=== PATIENT | male | born 1980 | race Caucasian/White ===

== ENCOUNTER → 2016-06-03 | Outpatient (REF) | payer MEDICARE, MEDICAID ==
[~2016-06-03] MED LIST: /CELE20CA OR; /LAMO20TA OR; /ROPI25TA OR; ACET500C OR; EXCEDRINE MIGRAINE OR; FLECTOR1.3 TOP; IMIT100T OR; LEVO25TA2 OR; MELOPOW OR; NORT25CA2 OR; SOMA350T OR; TOPI100T OR; TOPI200T OR; VENL75TA2 OR; VITAMIN B COMPLE1 OR; VOLT1GEL EX
== END ==
LOC: M SMT 12:53
PROVIDERS: ATTEND Nurse Practitioner Family
DX: R35.0 Frequency of micturition (principal)
CPT/HCPCS: 81001; 87088; 87186; G0463

== ENCOUNTER → 2016-07-08 | Outpatient (REF) | payer MEDICARE, MEDICAID | LOC: M LABNEURO 12:57 | PROVIDERS: ATTEND Physician Assistant Medical | DX: R56.9 Unspecified convulsions (principal); Z51.81 Encounter for therapeutic drug level monitoring; Z79.899 Other long term (current) drug therapy ==

== ENCOUNTER → 2016-08-14 | Outpatient (REF) | payer MEDICARE, MEDICAID ==
[~2016-08-14] MED LIST changes: +CYMB60CA3 PO; +KEPP1000 PO; +LAMI200T3 PO; +LEVO25TA5 PO; +LYRI150C PO; +MIRT30TA3 PO; +PAME25CA PO; +nortriptyline PO
[2016-08-14 14:00] LABS: BASO % 0.6 % (0.0-1.0); EOS # 0.3 K/mm3 (0.0-0.50); EOS % 4.3 % (0.0-3.0); LARGE UNSTAINED CELL # 0.2 K/mm3 (0.0-0.4); LARGE UNSTAINED CELL % 2.5 % (0.0-4.0); LYMPH # 2.3 K/mm3 (1.5-4.5); LYMPH % 33.7 % (24.0-44.0); MEAN CORPUSCULAR HEMOGLOBIN 32.4 pg (27.0-33.0); MEAN CORPUSCULAR HGB CONC 35.3 g/dl (32.0-36.5); MEAN CORPUSCULAR VOLUME 91.9 fl (80.0-96.0); MONO # 0.4 K/mm3 (0.0-0.8); MONO % 5.5 % (0.0-5.0); NEUTROPHILS # 3.7 K/mm3 (1.8-7.7); NEUTROPHILS % 53.5 % (36.0-66.0); PLATELET COUNT, AUTOMATED 279 k/mm3 (150-450); RED CELL DISTRIBUTION WIDTH 12.6 % (11.5-14.5); WHITE BLOOD COUNT 6.9 K/mm3 (4.0-10.0)
[2016-08-14 14:06] LABS: INR 1.01
[2016-08-14 14:27] LABS: ALBUMIN 4.2 GM/DL (3.2-5.2); ALBUMIN/GLOBULIN RATIO 1.17 (1.00-1.93); ALKALINE PHOSPHATASE 95 U/L (45-117); ALT/SGPT 134 U/L (12-78); ANION GAP 9 MEQ/L (8-16); AST/SGOT 68 U/L (15-37); BILIRUBIN,TOTAL 0.6 MG/DL (0.2-1.0); BLOOD UREA NITROGEN 8 MG/DL (7-18); CARBON DIOXIDE LEVEL 28 MEQ/L (21-32); CHLORIDE LEVEL 101 MEQ/L (98-107); CHOLESTEROL LEVEL 156 MG/DL (<200); CREATININE FOR GFR 0.84 MG/DL (0.70-1.30); FREE T4 0.88 NG/DL (0.76-1.46); GLOMERULAR FILTRATION RATE > 60.0 (>60); GLUCOSE, FASTING 335 MG/DL (70-105); POTASSIUM SERUM 3.9 MEQ/L (3.5-5.1); SODIUM LEVEL 138 MEQ/L (136-145); TOTAL PROTEIN 7.8 GM/DL (6.4-8.2); TRIGLYCERIDES LEVEL 347 MG/DL (<150)
== END ==
LOC: M LAB REF 13:24
PROVIDERS: ATTEND Nurse Practitioner Family
DX: R63.1 Polydipsia (principal); R78.5 Finding of other psychotropic drug in blood; E55.9 Vitamin D deficiency, unspecified; E03.9 Hypothyroidism, unspecified; G43.909 Migraine, unspecified, not intractable, without status migrainosus; K62.5 Hemorrhage of anus and rectum

== ENCOUNTER → 2016-08-14 | Outpatient (CLI) | payer MEDICARE, MEDICAID ==
[~2016-08-14] MED LIST changes: +E-Z-PAQUE 96% w/w SUSP 176GM BTL As Ordered ONE; +VARIBAR NECTAR 40% w/v 240ML SUSP BTL As Ordered ONE; +VARIBAR PUDDING 40% w/v 230ML TUBE As Ordered ONE
--- NOTE | 2016-08-14 16:34 | REP ---
CHEST, TWO VIEWS: REASON: Dysphagia. PRIORS: None. There is a partially imagined ventriculoperitoneal shunt on the right. There is a partially imaged curvilinear density along the right anterior chest of uncertain etiology. The lung zaidi are clear and the heart is not enlarged. The osseous structure are within normal limits. IMPRESSION: No acute cardiopulmonary disease. Other findings as described above. Correlate clinically. Signed by Rich Stahl DO 08/14/2016 04:55 P
--- NOTE | 2016-08-14 17:45 | REP ---
COOKIE SWALLOW: The procedure was performed under the direct supervision of Dr. Victoria. The procedure was performed with Sharonda Kapadia from speech pathology present. 5 mL aliquots of nectar pudding solid and thin consistency barium was administered. There is no evidence of penetration or aspiration. A detailed report of this examination will be provided by speech pathology. 22 seconds of fluoroscopy time was utilized for this procedure. Reviewed by RICHARD Vergara 08/15/2016 04:54 PEdited and Signed by Branden Victoria MD 08/15/2016 07:53 P
== END ==
LOC: M ST 09:46
PROVIDERS: ATTEND Nurse Practitioner Family
DX: R13.10 Dysphagia, unspecified (principal); R63.1 Polydipsia; R78.5 Finding of other psychotropic drug in blood; E55.9 Vitamin D deficiency, unspecified; E03.9 Hypothyroidism, unspecified; G43.909 Migraine, unspecified, not intractable, without status migrainosus; K62.5 Hemorrhage of anus and rectum
CPT/HCPCS: 71020; 74230; 80053; 80061; 82306; 83036; 84439; 84443; 85025; 85610; 92611; G8996; G8997; G8998

== ENCOUNTER → 2016-11-18 | Outpatient (REF) | payer MEDICARE, MEDICAID ==
[~2016-11-18] MED LIST changes: +BACL10TA2 PO; +DOXE10CA PO; -E-Z-PAQUE 96% w/w SUSP 176GM BTL As Ordered ONE; +GLUC1000 PO; +JANU100T PO; -KEPP1000 PO; +KEPP10002 PO; +LAMI1TAB9 PO; -LAMI200T3 PO; +MIRT45TA PO; +REQU1TAB14 PO; +REQU1TAB16 PO; -VARIBAR NECTAR 40% w/v 240ML SUSP BTL As Ordered ONE; -VARIBAR PUDDING 40% w/v 230ML TUBE As Ordered ONE; +VITA1CAP40 PO
[2016-11-18 15:42] LABS: ANION GAP 12 MEQ/L (8-16); BLOOD UREA NITROGEN 10 MG/DL (7-18); CALCIUM LEVEL 8.7 MG/DL (8.5-10.1); CARBON DIOXIDE LEVEL 22 MEQ/L (21-32); CHLORIDE LEVEL 110 MEQ/L (98-107); CREATININE FOR GFR 0.82 MG/DL (0.70-1.30); GLOMERULAR FILTRATION RATE > 60.0 (>60); GLUCOSE, FASTING 126 MG/DL (70-105); POTASSIUM SERUM 4.2 MEQ/L (3.5-5.1); SODIUM LEVEL 144 MEQ/L (136-145)
== END ==
LOC: M LAB REF 13:23
PROVIDERS: ATTEND Nurse Practitioner Family
DX: E11.9 Type 2 diabetes mellitus without complications (principal); E55.9 Vitamin D deficiency, unspecified; R56.9 Unspecified convulsions; Z51.81 Encounter for therapeutic drug level monitoring; Z79.899 Other long term (current) drug therapy

== ENCOUNTER → 2016-11-18 | Outpatient (REF) | payer MEDICARE, MEDICAID | LOC: M LAB REF 13:30 | PROVIDERS: ATTEND Physician Assistant Medical | DX: R56.9 Unspecified convulsions (principal); Z51.81 Encounter for therapeutic drug level monitoring; Z79.899 Other long term (current) drug therapy ==

== ENCOUNTER 2016-12-17 03:06 | Emergency (ER) | payer MEDICARE, MEDICAID ==
[~2016-12-17] VITALS: Ht 154.9 cm; Wt 104.1 kg
[~2016-12-17 03:06] MED LIST changes: -BACL10TA2 PO; -DOXE10CA PO; -GLUC1000 PO; -JANU100T PO; -MIRT45TA PO; -REQU1TAB14 PO; -REQU1TAB16 PO; -VITA1CAP40 PO
[2016-12-17] MEDS ORDERED: BACL10TA2 PO (03:26)
[2016-12-17] MEDS ORDERED: VITA1CAP40 PO (03:26)
[2016-12-17] MEDS ORDERED: REQU1TAB16 PO (03:26)
[2016-12-17] MEDS ORDERED: MIRT45TA PO (03:26)
[2016-12-17] MEDS ORDERED: REQU1TAB14 PO (03:26)
[2016-12-17] MEDS ORDERED: GLUC1000 PO (03:26)
[2016-12-17] MEDS ORDERED: DOXE10CA PO (03:26)
[2016-12-17 04:26] LABS: BASO % 0.1 % (0.0-1.0); EOS % 0.1 % (0.0-3.0); LARGE UNSTAINED CELL # 0.2 K/mm3 (0.0-0.4); LARGE UNSTAINED CELL % 1.6 % (0.0-4.0); LYMPH # 1.2 K/mm3 (1.5-4.5); LYMPH % 11.1 % (24.0-44.0); MEAN CORPUSCULAR HEMOGLOBIN 32.2 pg (27.0-33.0); MEAN CORPUSCULAR HGB CONC 36.5 g/dl (32.0-36.5); MEAN CORPUSCULAR VOLUME 88.2 fl (80.0-96.0); MONO # 0.5 K/mm3 (0.0-0.8); NEUTROPHILS # 9.3 K/mm3 (1.8-7.7); NEUTROPHILS % 83.2 % (36.0-66.0); PLATELET COUNT, AUTOMATED 320 k/mm3 (150-450); RED CELL DISTRIBUTION WIDTH 12.1 % (11.5-14.5); WHITE BLOOD COUNT 11.2 K/mm3 (4.0-10.0)
--- NOTE | 2016-12-17 04:42 | REPUSA ---
CLINICAL HISTORY: Headaches. TECHNIQUE: Multiple axial brain CT scan sections were obtained from base to vertex without contrast a dministration. COMMENTS: Right parietal ventriculoperitoneal shunt with its tip at the level of the frontal horn of the left l ateral ventricle. Slitlike left lateral ventricle. 3.2 mm midline shift to the right side. The study shows normal configuration of sella turcica. There are no intra or extra-axial collections. There is no mass effect or midline shift. There is no evidence of hematoma formation. No hydrocephal us is present. No abnormal calcifications are noted. No significant abnormalities are seen either in the posterior fossa or supratentorial compartment. The sinuses and mastoid air cells are patent. IMPRESSION: Right parietal ventriculoperitoneal shunt with its tip at the level of the frontal horn of the left l ateral ventricle. Slitlike left lateral ventricle. No evidence of acute intracranial pathology. 3.2 mm midline shift to the right side. Thank you for your kind referral of this patient.
[2016-12-17 04:43] LABS: ANION GAP 11 MEQ/L (8-16); BLOOD UREA NITROGEN 16 MG/DL (7-18); CALCIUM LEVEL 9.2 MG/DL (8.5-10.1); CARBON DIOXIDE LEVEL 26 MEQ/L (21-32); CHLORIDE LEVEL 101 MEQ/L (98-107); CREATININE FOR GFR 0.89 MG/DL (0.70-1.30); GLOMERULAR FILTRATION RATE > 60.0 (>60); GLUCOSE, FASTING 150 MG/DL (70-105); POTASSIUM SERUM 3.5 MEQ/L (3.5-5.1); SODIUM LEVEL 138 MEQ/L (136-145)
[2016-12-17] MEDS ORDERED: NS 1,000 ML IV ONE (04:45)
[2016-12-17] MEDS ORDERED: METOCLOPRAMIDE INJ 10MG/2ML VIAL (J2765) IV ONE (04:45)
--- NOTE | 2016-12-17 05:51 | REPUSA ---
CLINICAL HISTORY: Ventricular peritoneal shunt. COMMENTS: Normal bilateral frontozygomatic and zygomatic-temporal arches. Normal bilateral medial and inferior orbital rivera. Normal bilateral orbits. Normal visualized nasal bones. Normal anterior nasal spine. The remaining visualized osseous structures are normal. Normal visualized paranasal sinuses.The lungs are expanded. There is no demonstrated parenchymal abno rmality. There is no demonstrated pleural abnormality. Normal heart and pericardium. Normal mediastinum and ravindra. Normal visualized pulmonary arteries. Normal visualized aortic arch and descending thoracic aorta. Normal visualized thoracic spine. Normal visualized ribs, clavicles, and shoulders. There is no demonstrated abnormality of the visualized soft tissue structures of the upper abdomen.No rmal visualized lung bases. There is an unremarkable bowel gas pattern. There is no demonstrated free abdominal air. Normal visualized liver. Normal visualized spleen. Normal visualized kidneys. The soft tissue structures of the pelvis are unremarkable. Normal visualized osseous structures. Uninterrupted right ventricular peritoneal shunt is noted. IMPRESSION: Uninterrupted right ventricular peritoneal shunt is noted. Thank you for your kind referral of this patient.
[2016-12-17 06:42] VITALS: BP 135/79
[2016-12-18] MEDS ORDERED: JANU100T PO (13:52)
== END 2016-12-17 06:45 | disposition home or self-care (01) ==
LOC: M ED 03:06
DX: R51 Headache (principal); R11.2 Nausea with vomiting, unspecified; G91.9 Hydrocephalus, unspecified; Z98.2 Presence of cerebrospinal fluid drainage device; E11.9 Type 2 diabetes mellitus without complications; G40.909 Epilepsy, unspecified, not intractable, without status epilepticus; Z79.899 Other long term (current) drug therapy; Z79.84 Long term (current) use of oral hypoglycemic drugs
CPT/HCPCS: 70450; 75809; 80048; 85025; 93041; 94760; 96361; 96374; 99284; J2765

== ENCOUNTER 2016-12-18 13:39 | Emergency (ER) | payer MEDICARE, MEDICAID ==
[~2016-12-18] VITALS: Ht 154.9 cm; Wt 229.0 kg
[~2016-12-18 13:39] MED LIST changes: +BACL10TA2 PO; +DOXE10CA PO; +GLUC1000 PO; +MIRT45TA PO; +REQU1TAB14 PO; +REQU1TAB16 PO; +VITA1CAP40 PO
[2016-12-18] MEDS ORDERED: JANU100T PO (13:52)
--- NOTE | 2016-12-18 14:59 | REP ---
Clinical: Headache and vomiting . Comparison: 12/17/2016, 09/11/2015 . Findings: There is a ventriculoperitoneal shunt via right parietal approach extending into the left lateral ventricle. The ventricles are stable, normal, and without evidence for hydrocephalus or ventriculomegaly. The sulci and basilar cisterns are normal. Victoria-white differentiation is maintained. No acute intracranial hemorrhage or mass/mass effect. No extra-axial fluid collection. The calvarium is relatively intact. Partial opacification of the ethmoid sinuses may reflect mild sinus disease. Impression: 1. Stable noncontrast head CT when compared with prior examinations dating through 09/11/2015. 2. No evidence for acute intracranial pathology or trauma/injury. 3. Stable appearance and positioning to the ventriculoperitoneal shunt and stable appearance to the ventricles without hydrocephalus or ventriculomegaly. Signed by Tutu Leon MD 12/18/2016 02:50 P
[2016-12-18] MEDS ORDERED: LIDOCAINE 2% MDV 20 ML VIAL As Ordered ONE (15:08)
[2016-12-18] MEDS ORDERED: ACETAMINOPHEN 325 MG TAB PO ONE (15:15)
[2016-12-18] MEDS ORDERED: LIDOCAINE 2% MDV 20 ML VIAL SC ONE (15:15)
[2016-12-18 16:37] VITALS: BP 114/61
== END 2016-12-18 16:38 | disposition home or self-care (01) ==
LOC: M ED 13:39
DX: S01.81XA Laceration without foreign body of other part of head, initial encounter (principal); W01.0XXA Fall on same level from slipping, tripping and stumbling without subsequent striking against object, initial encounter; Y92.481 Parking lot as the place of occurrence of the external cause; Y93.9 Activity, unspecified; Y99.9 Unspecified external cause status; Z79.899 Other long term (current) drug therapy

== ENCOUNTER → 2017-02-18 | Outpatient (REF) | payer MEDICARE, MEDICAID ==
[~2017-02-18] MED LIST changes: +JANU100T PO
[2017-02-18 14:12] LABS: ANION GAP 8 MEQ/L (8-16); BLOOD UREA NITROGEN 12 MG/DL (7-18); CALCIUM LEVEL 9.1 MG/DL (8.5-10.1); CARBON DIOXIDE LEVEL 26 MEQ/L (21-32); CHLORIDE LEVEL 104 MEQ/L (98-107); CHOLESTEROL LEVEL 134 MG/DL (<200); CREATININE FOR GFR 0.86 MG/DL (0.70-1.30); GLOMERULAR FILTRATION RATE > 60.0 (>60); GLUCOSE, FASTING 199 MG/DL (70-105); SODIUM LEVEL 138 MEQ/L (136-145); TRIGLYCERIDES LEVEL 267 MG/DL (<150)
== END ==
LOC: M LAB REF 12:42
PROVIDERS: ATTEND Nurse Practitioner Family
DX: E55.9 Vitamin D deficiency, unspecified (principal); E78.5 Hyperlipidemia, unspecified; E11.9 Type 2 diabetes mellitus without complications

== ENCOUNTER → 2017-03-11 | Outpatient (REF) | payer MEDICARE, MEDICAID ==
[2017-03-11 19:00] LABS: THYROXINE (T4) 12.4 UG/DL (4.5-12.0)
== END ==
LOC: M LAB REF 17:26
PROVIDERS: ATTEND Nurse Practitioner Adult Health
DX: E03.9 Hypothyroidism, unspecified (principal)

== ENCOUNTER → 2017-04-29 | Outpatient (REF) | payer MEDICARE, MEDICAID ==
[2017-04-29 14:39] LABS: TOTAL 25(OH) VITAMIN D 16.5 NG/ML (30.0-100.0)
[2017-04-29 15:10] LABS: ESTIMATED AVERAGE GLUCOSE 217 MG/DL (60-110); HEMOGLOBIN A1c 9.2 %
== END ==
LOC: M LAB REF 13:58
DX: E11.9 Type 2 diabetes mellitus without complications (principal); E55.9 Vitamin D deficiency, unspecified
CPT/HCPCS: 84443

== ENCOUNTER → 2017-08-17 | Outpatient (REF) | payer MEDICARE, MEDICAID | LOC: M LABNEURO 14:08 | DX: G40.909 Epilepsy, unspecified, not intractable, without status epilepticus (principal) | CPT/HCPCS: 36415 ==

== ENCOUNTER → 2017-10-21 | Outpatient (REF) | payer MEDICARE, MEDICAID ==
[2017-10-21 14:59] LABS: ESTIMATED AVERAGE GLUCOSE 143 MG/DL (60-110); HEMOGLOBIN A1c 6.6 %
== END ==
LOC: M LAB REF 13:43
DX: E11.9 Type 2 diabetes mellitus without complications (principal); E03.9 Hypothyroidism, unspecified
CPT/HCPCS: 84443

== ENCOUNTER → 2017-11-04 | Outpatient (REF) | payer MEDICARE, MEDICAID ==
[2017-11-06 14:15] LABS: H. PYLORI BREATH TEST Negative (Negative)
== END ==
LOC: M LAB REF 09:15
DX: R13.10 Dysphagia, unspecified (principal); E03.9 Hypothyroidism, unspecified
CPT/HCPCS: 84443

== ENCOUNTER → 2017-12-11 | Outpatient (CLI) | payer MEDICARE, MEDICAID ==
[~2017-12-11] MED LIST changes: -/CELE20CA OR; -/LAMO20TA OR; -/ROPI25TA OR; -ACET500C OR; -BACL10TA2 PO; -CYMB60CA3 PO; -DOXE10CA PO; +E-Z-GAS II EFFERVESCENT PACKET (SODIUM BICARB./CITRIC ACID/SIMETHICONE) As Ordered; +E-Z-HD 98% w/w 340GM SUSP BTL As Ordered; +E-Z-PAQUE 96% w/w SUSP 176GM BTL As Ordered; -EXCEDRINE MIGRAINE OR; -FLECTOR1.3 TOP; -GLUC1000 PO; -IMIT100T OR; -JANU100T PO; -KEPP10002 PO; -LAMI1TAB9 PO; -LEVO25TA2 OR; -LEVO25TA5 PO; -LYRI150C PO; -MELOPOW OR; -MIRT30TA3 PO; -MIRT45TA PO; -NORT25CA2 OR; -PAME25CA PO; -REQU1TAB14 PO; -REQU1TAB16 PO; -SOMA350T OR; -TOPI100T OR; -TOPI200T OR; -VENL75TA2 OR; -VITA1CAP40 PO; -VITAMIN B COMPLE1 OR; -VOLT1GEL EX; -nortriptyline PO
== END ==
LOC: M RAD 08:43
DX: R13.10 Dysphagia, unspecified (principal); K21.0 Gastro-esophageal reflux disease with esophagitis; R10.13 Epigastric pain
CPT/HCPCS: 74220

== ENCOUNTER → 2017-12-18 | Outpatient (CLI) | payer MEDICARE, MEDICAID | LOC: M RAD 08:46 | DX: K31.84 Gastroparesis (principal); R11.0 Nausea; R10.13 Epigastric pain | CPT/HCPCS: 78264 ==

== ENCOUNTER → 2017-12-21 | Outpatient (REF) | payer MEDICARE, MEDICAID ==
[2017-12-21 15:56] LABS: ESTIMATED AVERAGE GLUCOSE 140 MG/DL (60-110); HEMOGLOBIN A1c 6.5 %
[2017-12-21 20:46] LABS: TOTAL 25(OH) VITAMIN D 26.7 NG/ML (30.0-100.0)
== END ==
LOC: M LAB REF 13:22
DX: I10 Essential (primary) hypertension (principal); E11.9 Type 2 diabetes mellitus without complications
CPT/HCPCS: 84443

== ENCOUNTER 2018-01-19 13:47 | Outpatient (RCR) | payer MEDICARE, MEDICAID | END 2018-02-03 | LOC: M PT 13:47 | DX: H81.13 Benign paroxysmal vertigo, bilateral (principal); H81.93 Unspecified disorder of vestibular function, bilateral | CPT/HCPCS: 97112 ==

== ENCOUNTER 2018-02-08 11:14 | Outpatient (RCR) | payer MEDICARE, MEDICAID | END 2018-03-05 | LOC: M PT 11:14 | DX: H81.13 Benign paroxysmal vertigo, bilateral (principal); H81.93 Unspecified disorder of vestibular function, bilateral | CPT/HCPCS: 97110 ==

== ENCOUNTER 2018-02-15 14:34 | Emergency (ER) | payer MEDICARE, MEDICAID ==
[2018-02-15 15:36] LABS: BASO # 0.1 10^3/uL (0.0-0.2); BASO % 0.5 % (0.0-1.0); EOS # 0.4 10^3/uL (0.0-0.50); EOS % 3.7 % (0.0-3.0); HEMATOCRIT 37.8 % (42.0-52.0); HEMOGLOBIN 13.1 g/dl (13.5-17.5); IMMATURE GRANULOCYTE % 0.4 % (0-3.0); LYMPH # 3.8 10^3/uL (1.5-4.5); LYMPH % 35.9 % (24.0-44.0); MEAN CORPUSCULAR HEMOGLOBIN 30.6 pg (27.0-33.0); MEAN CORPUSCULAR HGB CONC 34.7 g/dl (32.0-36.5); MEAN CORPUSCULAR VOLUME 88.3 fl (80.0-96.0); MONO # 0.8 10^3/uL (0.0-0.8); MONO % 7.2 % (0.0-5.0); NEUTROPHILS # 5.5 10^3/uL (1.8-7.7); NEUTROPHILS % 52.3 % (36.0-66.0); PLATELET COUNT, AUTOMATED 287 10^3/uL (150-450); RED BLOOD COUNT 4.28 10^6/uL (4.30-6.10); RED CELL DISTRIBUTION WIDTH 12.4 % (11.5-14.5); WHITE BLOOD COUNT 10.5 10^3/uL (4.0-10.0)
[2018-02-15 15:55] LABS: ANION GAP 8 MEQ/L (8-16); BLOOD UREA NITROGEN 8 MG/DL (7-18); CALCIUM LEVEL 9.1 MG/DL (8.5-10.1); CARBON DIOXIDE LEVEL 27 MEQ/L (21-32); CHLORIDE LEVEL 104 MEQ/L (98-107); CPK CREATINE PHOSPHOKINASE 362 U/L (39-308); CREATININE FOR GFR 0.88 MG/DL (0.70-1.30); ETHYL ALCOHOL (ETHANOL) < 0.003 % (0.000-0.010); FREE T4 1.05 NG/DL (0.76-1.46); GLOMERULAR FILTRATION RATE > 60.0 (>60); GLUCOSE, FASTING 85 MG/DL (70-100); MAGNESIUM LEVEL 2.1 MG/DL (1.8-2.4); POTASSIUM SERUM 3.9 MEQ/L (3.5-5.1); SODIUM LEVEL 139 MEQ/L (136-145); TROPONIN I < 0.02 NG/ML (< 0.10)
[2018-02-15] MEDS: NS 500 ML IV (16:00)
[2018-02-15 18:09] LABS: AMPHETAMINES LEVEL URINE NEGATIVE (NEGATIVE); BARBITURATES URINE NEGATIVE (NEGATIVE); BENZODIAZEPINES URINE NEGATIVE (NEGATIVE); CANNABINOIDS URINE NEGATIVE (NEGATIVE); COCAINE METABOLITE URINE NEGATIVE (NEGATIVE); METHADONE URINE NEGATIVE (NEGATIVE); OPIATES URINE NEGATIVE (NEGATIVE); PHENCYCLIDINE URINE NEGATIVE (NEGATIVE)
[2018-02-15 18:19] LABS: KETONE, URINE AUTO RFX NEGATIVE (NEGATIVE); LEUKOCYTE ESTERASE UR AUTO RFX NEGATIVE (NEGATIVE); MUCUS, URINE RFX SMALL (NEGATIVE); NITRITE, URINE AUTO RFX NEGATIVE (NEGATIVE); RBC, URINE AUTO RFX 1 /HPF (0-3); SPECIFIC GRAVITY UR AUTO RFX 1.009 (1.002-1.035); SQUAM EPITHELIAL CELL UR AURFX 0 /HPF (0-6); WBC, URINE AUTO RFX 0 /HPF (0-3)
[2018-02-16 14:07] LABS: BEDSIDE GLUCOSE 82 MG/DL (70-105)
== END 2018-02-15 18:58 | disposition home or self-care (01) ==
LOC: M ED 14:34
DX: R55 Syncope and collapse (principal); R00.0 Tachycardia, unspecified; R94.31 Abnormal electrocardiogram [ECG] [EKG]; E11.9 Type 2 diabetes mellitus without complications; M79.7 Fibromyalgia; G40.409 Other generalized epilepsy and epileptic syndromes, not intractable, without status epilepticus; R42 Dizziness and giddiness; Z98.2 Presence of cerebrospinal fluid drainage device; Z79.899 Other long term (current) drug therapy
CPT/HCPCS: 71045

== ENCOUNTER 2018-03-17 14:41 | Outpatient (RCR) | payer MEDICARE, MEDICAID ==
[~2018-03-17 14:41] MED LIST changes: +/CELE20CA OR; +/LAMO20TA OR; +/ROPI25TA OR; +ACET500C OR; +BACL10TA2 PO; +CYMB60CA3 PO; +DOXE10CA PO; -E-Z-GAS II EFFERVESCENT PACKET (SODIUM BICARB./CITRIC ACID/SIMETHICONE) As Ordered; -E-Z-HD 98% w/w 340GM SUSP BTL As Ordered; -E-Z-PAQUE 96% w/w SUSP 176GM BTL As Ordered; +EXCEDRINE MIGRAINE OR; +FLECTOR1.3 TOP; +GLIP5TAB20 PO; +GLUC1000 PO; +IMIT100T OR; +JANU100T PO; +KEPP10002 PO; +LAMI1TAB9 PO; +LEVO25TA2 OR; +LEVO25TA5 PO; +LEVO75TA4 PO; +LYRI150C PO; +MELOPOW OR; +MIRT30TA3 PO; +MIRT45TA4 PO; +NORT25CA2 OR; +PAME25CA PO; +PROTPAK PO; +PROZ10CA7 PO; +PROZ20CA11 PO; +REQU1TAB14 PO; +REQU1TAB16 PO; +SOMA350T OR; +TOPI100T OR; +TOPI200T OR; +TRAZ-163 PO; +VENL75TA2 OR; +VITA50005 PO; +VITAMIN B COMPLE1 OR; +VOLT1GEL EX; +ZOLP5TAB PO; +nortriptyline PO
[2018-03-23] MEDS ORDERED: MECL1CHW2 PO (09:47)
[2018-03-23] MEDS ORDERED: PAME25CA PO ×2 (09:47)
== END 2018-04-05 ==
LOC: M PT 14:41
PROVIDERS: ATTEND Nurse Practitioner Adult Health
DX: H81.13 Benign paroxysmal vertigo, bilateral (principal)
CPT/HCPCS: 97110; 97112; 97530; G8979; G8980

== ENCOUNTER 2018-03-24 12:27 | Day surgery (SDC) | payer MEDICARE, MEDICAID ==
[2018-03-24] MEDS: LR 1,000 ML IV (12:48)
[2018-03-24 13:36] LABS: BEDSIDE GLUCOSE 94 MG/DL (70-105)
[2018-03-24] MEDS ORDERED: PROPOFOL 200 MG/20 ML VIAL As Ordered (14:14)
[2018-03-24] MEDS ORDERED: LIDOCAINE 2% INJ 100 MG/5 ML SDV (FOR ANES.) As Ordered (14:14)
[2018-03-24] MEDS ORDERED: MIDAZOLAM INJ 2 MG/2 ML VIAL (J2250) As Ordered (14:14)
[2018-03-24] MEDS ORDERED: fentaNYL 100 MCG/2 ML INJECTION (J3010) As Ordered (14:15)
[2018-03-24] MEDS: LIDOCAINE 1% MDV 20ML VIAL As Ordered (14:58)
[2018-03-24] MEDS ORDERED: PERCOCET 5MG/325MG TAB PO (15:45)
[2018-03-24] MEDS ORDERED: LR 1,000 ML IV (15:45)
[2018-03-24] MEDS ORDERED: ONDANSETRON 4MG/2ML VIAL (J2405) IV (15:45)
[2018-03-24] MEDS ORDERED: ACETAMINOPHEN TAB 650MG DOSE (2X325MG) PO (15:45)
== END 2018-03-24 16:00 | disposition home or self-care (01) ==
LOC: M SDC 16:00
DX: R55 Syncope and collapse (principal); I10 Essential (primary) hypertension; E11.9 Type 2 diabetes mellitus without complications; G40.909 Epilepsy, unspecified, not intractable, without status epilepticus; R00.0 Tachycardia, unspecified; E03.9 Hypothyroidism, unspecified; M79.7 Fibromyalgia; F41.9 Anxiety disorder, unspecified; F32.9 Major depressive disorder, single episode, unspecified; K21.9 Gastro-esophageal reflux disease without esophagitis; G43.909 Migraine, unspecified, not intractable, without status migrainosus; R06.83 Snoring; G47.30 Sleep apnea, unspecified; E66.01 Morbid (severe) obesity due to excess calories; Z68.41 Body mass index [BMI] 40.0-44.9, adult; Z79.899 Other long term (current) drug therapy; Z98.2 Presence of cerebrospinal fluid drainage device
CPT/HCPCS: 33282

== ENCOUNTER → 2018-05-31 | Outpatient (REF) | payer MEDICARE, MEDICAID ==
[~2018-05-31] MED LIST changes: +MECL1CHW2 PO
[2018-05-31 19:59] LABS: BASO # 0.1 10^3/uL (0.0-0.2); BASO % 0.5 % (0.0-1.0); EOS # 0.2 10^3/uL (0.0-0.50); EOS % 1.7 % (0.0-3.0); HEMATOCRIT 40.4 % (42.0-52.0); HEMOGLOBIN 13.9 g/dl (13.5-17.5); LYMPH # 2.9 10^3/uL (1.5-4.5); MEAN CORPUSCULAR HEMOGLOBIN 30.2 pg (27.0-33.0); MEAN CORPUSCULAR HGB CONC 34.4 g/dl (32.0-36.5); MEAN CORPUSCULAR VOLUME 87.8 fl (80.0-96.0); MONO # 0.6 10^3/uL (0.0-0.8); MONO % 5.8 % (0.0-5.0); NEUTROPHILS # 6.6 10^3/uL (1.8-7.7); NEUTROPHILS % 63.6 % (36.0-66.0); PLATELET COUNT, AUTOMATED 325 10^3/uL (150-450); WHITE BLOOD COUNT 10.4 10^3/uL (4.0-10.0)
[2018-05-31 20:05] LABS: ALBUMIN 4.4 GM/DL (3.2-5.2); ALT/SGPT 84 U/L (12-78); BILIRUBIN,TOTAL 0.4 MG/DL (0.2-1.0); BLOOD UREA NITROGEN 8 MG/DL (7-18); CALCIUM LEVEL 9.1 MG/DL (8.5-10.1); CARBON DIOXIDE LEVEL 27 MEQ/L (21-32); CHLORIDE LEVEL 101 MEQ/L (98-107); CHOLESTEROL LEVEL 166 MG/DL (<200); CHOLESTEROL RISK RATIO 6.148 (<5); CREATININE FOR GFR 1.07 MG/DL (0.70-1.30); FREE T4 1.03 NG/DL (0.76-1.46); GLOMERULAR FILTRATION RATE > 60.0 (>60); GLUCOSE, FASTING 118 MG/DL (70-100); HDL CHOLESTEROL 27 MG/DL (>40); LDL CHOLESTEROL 94 MG/DL (<100); NON-HDL-C 139 MG/DL; POTASSIUM SERUM 3.9 MEQ/L (3.5-5.1); SODIUM LEVEL 137 MEQ/L (136-145); TOTAL 25(OH) VITAMIN D 11.8 NG/ML (30.0-100.0); TOTAL PROTEIN 8.6 GM/DL (6.4-8.2); TRIGLYCERIDES LEVEL 225 MG/DL (<150)
[2018-05-31 20:22] LABS: HEMOGLOBIN A1c 7.1 %
[2018-05-31 20:33] LABS: CREATININE, URINE 92.9 MG/DL; MALB URINE SIEMENS 16.6 MG/L; MAU/CREAT RATIO 17.8 MCG/MG (0.0-30.0)
[2018-06-03 00:08] LABS: Lyme Disease IgG/IgM Antibodie <0.91 ISR (0.00-0.90); Lyme Disease IgM Ab Quantitati <0.80 index (0.00-0.79)
== END ==
LOC: M LAB REF 18:54
PROVIDERS: ATTEND Family Medicine
DX: M25.50 Pain in unspecified joint (principal); E11.9 Type 2 diabetes mellitus without complications

== ENCOUNTER → 2018-06-05 | Outpatient (CLI) | payer MEDICARE, MEDICAID ==
--- NOTE | 2018-06-07 09:45 | REP ---
MRI lumbar spine without contrast: History: Acute low back pain. Comparison MRI study is from December 16, 2010. Technique: Sagittal and axial T1 and T2-weighted scans are acquired in the usual fashion with and without fat saturation. Sequences include spin echo, turbo spin-echo, and STIR imaging sequences. MRI findings: Cortical and medullary bone signal intensity are normal. Alignment is normal. The tip of the conus medullaris is normal in position and appearance at L1 unchanged. No extra vertebral abnormality is observed. There is no abnormal cyst seen in the thecal sac on today's images although T11 is beyond the field of view. At the L3-4, there is disc space narrowing and anterior spurring and disc bulging which is a new finding compared to prior study. Some diffuse posterior disc bulging is observed including the foraminal disc segments, left more so than right. No neural foraminal compression is seen however. No central canal stenosis is noted. At L4-5, there is mild disc space narrowing and minimal diffuse disc bulging. There is facet hypertrophy bilaterally. At L5-S1, there is a fairly large left posterior disc protrusion compressing and displacing the exiting S1 root on the left. There is facet hypertrophy moderate in degree bilaterally. The nerve roots exit the neural foramina surrounded by epidural fat however without compression. The disc protrusion at L5-S1 on the left appears more prominent today. The left S1 root sleeve is displaced more dorsally. Impression: Left L5-S1 disc protrusion with slightly increased and compression of the left S1 root. Degenerative spondylosis changes at L3-4 L4-5 somewhat more pronounced. Electronically Signed by Nura Mason MD 06/07/2018 12:44 P
== END ==
LOC: M RAD 12:25
PROVIDERS: ATTEND Internal Medicine
DX: M54.5 Low back pain (principal)

== ENCOUNTER → 2018-09-03 | Outpatient (REF) | payer MEDICARE, MEDICAID ==
[~2018-09-03] MED LIST changes: -/CELE20CA OR; -/LAMO20TA OR; -/ROPI25TA OR; +CELE1CAP4 OR; +LAMI1TAB9 OR; +MECL1CHW PO; -MECL1CHW2 PO; +REQU1TAB14 OR
[2018-09-03 14:36] LABS: APPEARANCE, URINE HAZY (CLEAR); BACTERIA, URINE AUTO NEGATIVE (NEGATIVE); BILIRUBIN, URINE AUTO NEGATIVE (NEGATIVE); BLOOD, URINE BLOOD NEGATIVE (NEGATIVE); COLOR, URINE YELLOW (YELLOW); GLUCOSE, URINE (UA) AUTO NEGATIVE (NEGATIVE); KETONE, URINE AUTO NEGATIVE (NEGATIVE); LEUKOCYTE ESTERASE, URINE AUTO NEGATIVE (NEGATIVE); MUCUS, URINE SMALL (NEGATIVE); NITRITE, URINE AUTO NEGATIVE (NEGATIVE); PROTEIN, URINE AUTO NEGATIVE (NEGATIVE); RBC, URINE AUTO 4 /HPF (0-3); SPECIFIC GRAVITY URINE AUTO 1.029 (1.002-1.035); SQUAMOUS EPITHELIAL CELL UR AU 2 /HPF (0-6); WBC, URINE AUTO 3 /HPF (0-3)
[2018-09-03 15:06] LABS: MALB URINE SIEMENS 38.3 MG/L; MAU/CREAT RATIO 10.5 MCG/MG (0.0-30.0)
[2018-09-03 18:44] LABS: BASO % 0.5 % (0.0-1.0); EOS # 0.2 10^3/uL (0.0-0.50); EOS % 2.3 % (0.0-3.0); HEMOGLOBIN 14.5 g/dl (13.5-17.5); LYMPH # 2.2 10^3/uL (1.5-4.5); LYMPH % 25.6 % (24.0-44.0); MEAN CORPUSCULAR HEMOGLOBIN 30.9 pg (27.0-33.0); MEAN CORPUSCULAR HGB CONC 34.5 g/dl (32.0-36.5); MEAN CORPUSCULAR VOLUME 89.4 fl (80.0-96.0); MONO # 0.5 10^3/uL (0.0-0.8); MONO % 6.2 % (0.0-5.0); NEUTROPHILS # 5.7 10^3/uL (1.8-7.7); NEUTROPHILS % 65.1 % (36.0-66.0); PLATELET COUNT, AUTOMATED 341 10^3/uL (150-450); WHITE BLOOD COUNT 8.7 10^3/uL (4.0-10.0)
[2018-09-03 19:01] LABS: ALT/SGPT 60 U/L (12-78); BILIRUBIN,TOTAL 0.6 MG/DL (0.2-1.0); BLOOD UREA NITROGEN 15 MG/DL (7-18); CALCIUM LEVEL 8.6 MG/DL (8.5-10.1); CARBON DIOXIDE LEVEL 25 MEQ/L (21-32); CHLORIDE LEVEL 107 MEQ/L (98-107); CHOLESTEROL LEVEL 170 MG/DL (<200); CHOLESTEROL RISK RATIO 6.071 (<5); CREATININE FOR GFR 1.03 MG/DL (0.70-1.30); FREE T4 1.03 NG/DL (0.76-1.46); GLOMERULAR FILTRATION RATE > 60.0 (>60); GLUCOSE, FASTING 100 MG/DL (70-100); HDL CHOLESTEROL 28 MG/DL (>40); LDL CHOLESTEROL 116 MG/DL (<100); NON-HDL-C 142 MG/DL; POTASSIUM SERUM 4.1 MEQ/L (3.5-5.1); SODIUM LEVEL 140 MEQ/L (136-145); THYROID STIMULATING HORMONE 0.751 uIU/ML (0.358-3.740); TOTAL 25(OH) VITAMIN D 17.8 NG/ML (30.0-100.0); TOTAL PROTEIN 8.1 GM/DL (6.4-8.2); TRIGLYCERIDES LEVEL 132 MG/DL (<150)
[2018-09-07 00:07] LABS: Lyme Disease IgG/IgM Antibodie <0.91 ISR (0.00-0.90); Lyme Disease IgM Ab Quantitati <0.80 index (0.00-0.79)
== END ==
LOC: M LAB REF 12:32
PROVIDERS: ATTEND Family Medicine
DX: M25.50 Pain in unspecified joint (principal); E11.9 Type 2 diabetes mellitus without complications; Z79.899 Other long term (current) drug therapy

== ENCOUNTER → 2018-10-18 | Outpatient (CLI) | payer MEDICARE, MEDICAID ==
[~2018-10-18] MED LIST changes: -TRAZ-163 PO; +TRAZ-257 PO
--- NOTE | 2018-10-18 10:22 | REP ---
CT BRAIN WITHOUT CONTRAST: HISTORY: Hydrocephalus. COMPARISON: CT study February 15, 2018. FINDINGS: Digital commercial loan underwriter image demonstrates a ventriculostomy catheter. Bone window settings show that this catheter enters the brain from the right parietal bone. Catheter tip is seen in the frontal horn of the left lateral ventricle. No bony calvarial lesion is seen. Visualized paranasal sinuses are clear. On soft-tissue window settings, the catheter position is unchanged. The left lateral ventricle is quite small but unchanged. The right lateral ventricle is a little larger, also unchanged. Third and fourth ventricles are normal in size. Victoria-white differentiation pattern is normal. There is no evidence of intracranial hemorrhage. No infarct, mass, extra-axial fluid collection, or midline shift is seen. IMPRESSION: Right ventriculostomy catheter and ventricular size unchanged in position and appearance. No acute intracranial abnormality. Electronically Signed by Nura Mason MD 10/18/2018 11:11 A
== END ==
LOC: M RAD 09:37
PROVIDERS: ATTEND Neurological Surgery
DX: G91.9 Hydrocephalus, unspecified (principal)

== ENCOUNTER → 2018-11-30 | Outpatient (REF) | payer MEDICARE, MEDICAID ==
[2018-11-30 14:07] LABS: BASO # 0.1 10^3/uL (0.0-0.2); BASO % 0.6 % (0.0-1.0); EOS # 0.3 10^3/uL (0.0-0.50); EOS % 2.9 % (0.0-3.0); HEMATOCRIT 41.7 % (42.0-52.0); HEMOGLOBIN 13.9 g/dl (13.5-17.5); LYMPH # 2.9 10^3/uL (1.5-4.5); LYMPH % 29.6 % (24.0-44.0); MEAN CORPUSCULAR HEMOGLOBIN 30.1 pg (27.0-33.0); MEAN CORPUSCULAR HGB CONC 33.3 g/dl (32.0-36.5); MEAN CORPUSCULAR VOLUME 90.3 fl (80.0-96.0); MONO # 0.7 10^3/uL (0.0-0.8); NEUTROPHILS # 5.8 10^3/uL (1.8-7.7); NEUTROPHILS % 59.5 % (36.0-66.0); PLATELET COUNT, AUTOMATED 367 10^3/uL (150-450); RED BLOOD COUNT 4.62 10^6/uL (4.30-6.10); WHITE BLOOD COUNT 9.8 10^3/uL (4.0-10.0)
[2018-11-30 14:17] LABS: ALT/SGPT 41 U/L (12-78); BILIRUBIN,TOTAL 0.5 MG/DL (0.2-1.0); BLOOD UREA NITROGEN 12 MG/DL (7-18); CALCIUM LEVEL 9.1 MG/DL (8.5-10.1); CARBON DIOXIDE LEVEL 28 MEQ/L (21-32); CHLORIDE LEVEL 106 MEQ/L (98-107); CHOLESTEROL LEVEL 139 MG/DL (<200); CHOLESTEROL RISK RATIO 4.793 (<5); CREATININE FOR GFR 1.08 MG/DL (0.70-1.30); GLOMERULAR FILTRATION RATE > 60.0 (>60); GLUCOSE, FASTING 123 MG/DL (70-100); HDL CHOLESTEROL 29 MG/DL (>40); LDL CHOLESTEROL 71 MG/DL (<100); NON-HDL-C 110 MG/DL; POTASSIUM SERUM 3.8 MEQ/L (3.5-5.1); SODIUM LEVEL 138 MEQ/L (136-145); THYROID STIMULATING HORMONE 0.739 uIU/ML (0.358-3.740); TOTAL 25(OH) VITAMIN D 19.6 NG/ML (30.0-100.0); TRIGLYCERIDES LEVEL 194 MG/DL (<150)
[2018-11-30 14:48] LABS: MALB URINE SIEMENS 97.4 MG/L
[2018-11-30 16:16] LABS: HEMOGLOBIN A1c 6.2 %
== END ==
LOC: M LAB REF 12:24
PROVIDERS: ATTEND Family Medicine
DX: E11.9 Type 2 diabetes mellitus without complications (principal)

== ENCOUNTER → 2019-02-02 | Outpatient (REF) | payer MEDICARE, MEDICAID ==
[~2019-02-02] MED LIST changes: +TRAZ-163 PO; -TRAZ-257 PO
[2019-02-06 11:53] LABS: LAMOTRIGINE (LAMICTAL) 5.8 ug/mL (2.0-20.0); LEVETIRACETAM (KEPPRA) 16.2 ug/mL (10.0-40.0)
== END ==
LOC: M LABNEURO 13:08
PROVIDERS: ATTEND Physician Assistant Medical
DX: R56.9 Unspecified convulsions (principal)

== ENCOUNTER → 2019-07-29 | Outpatient (REF) | payer MEDICARE, MEDICAID ==
[~2019-07-29] MED LIST changes: -TRAZ-163 PO; +TRAZ-257 PO
[2019-07-29 19:05] LABS: H PYLORI QUALITATIVE IgG NEGATIVE (NEGATIVE)
== END ==
LOC: M LAB REF 16:11
PROVIDERS: ATTEND Family Medicine
DX: R19.7 Diarrhea, unspecified (principal)

== ENCOUNTER → 2019-08-18 | Outpatient (REF) | payer MEDICARE, MEDICAID ==
[2019-08-18 19:19] LABS: BASO # 0.1 10^3/uL (0.0-0.2); BASO % 0.7 % (0.0-1.0); EOS # 0.2 10^3/uL (0.0-0.5); EOS % 3.1 % (0.0-3.0); HEMATOCRIT 38.8 % (42.0-52.0); HEMOGLOBIN 13.2 g/dl (13.5-17.5); LYMPH # 2.3 10^3/uL (1.5-5.0); LYMPH % 30.4 % (24.0-44.0); MEAN CORPUSCULAR HEMOGLOBIN 30.6 pg (27.0-33.0); MONO # 0.4 10^3/uL (0.0-0.8); MONO % 5.3 % (0.0-5.0); NEUTROPHILS # 4.6 10^3/uL (1.5-8.5); NEUTROPHILS % 60.1 % (36.0-66.0); PLATELET COUNT, AUTOMATED 289 10^3/uL (150-450); RED BLOOD COUNT 4.31 10^6/uL (4.30-6.10); WHITE BLOOD COUNT 7.7 10^3/uL (4.0-10.0)
[2019-08-18 19:40] LABS: HEMOGLOBIN A1c 6.3 %
[2019-08-18 20:19] LABS: ALBUMIN 3.8 GM/DL (3.2-5.2); ALT/SGPT 59 U/L (12-78); BILIRUBIN,TOTAL 0.3 MG/DL (0.2-1.0); BLOOD UREA NITROGEN 10 MG/DL (7-18); CALCIUM LEVEL 8.7 MG/DL (8.5-10.1); CARBON DIOXIDE LEVEL 24 MEQ/L (21-32); CHLORIDE LEVEL 106 MEQ/L (98-107); GLOMERULAR FILTRATION RATE > 60.0 (>60); GLUCOSE, FASTING 273 MG/DL (70-100); POTASSIUM SERUM 3.9 MEQ/L (3.5-5.1); SODIUM LEVEL 139 MEQ/L (136-145); TOTAL PROTEIN 7.6 GM/DL (6.4-8.2)
[2019-08-18 20:20] LABS: TOTAL 25(OH) VITAMIN D 18.6 NG/ML (30.0-100.0)
== END ==
LOC: M LAB REF 16:25
PROVIDERS: ATTEND Family Medicine
DX: R14.0 Abdominal distension (gaseous) (principal); E11.9 Type 2 diabetes mellitus without complications

== ENCOUNTER → 2019-11-11 | Outpatient (REF) | payer MEDICARE, MEDICAID ==
[2019-12-10 04:26] LABS: BASO % 0.5 % (0.0-1.0); EOS # 0.3 10^3/uL (0.0-0.5); EOS % 3.5 % (0.0-3.0); HEMATOCRIT 39.9 % (42.0-52.0); HEMOGLOBIN 13.3 g/dl (13.5-17.5); LYMPH # 2.9 10^3/uL (1.5-5.0); LYMPH % 36.4 % (24.0-44.0); MEAN CORPUSCULAR HEMOGLOBIN 30.1 pg (27.0-33.0); MEAN CORPUSCULAR HGB CONC 33.3 g/dl (32.0-36.5); MEAN CORPUSCULAR VOLUME 90.3 fl (80.0-96.0); MONO # 0.6 10^3/uL (0.0-0.8); MONO % 7.7 % (0.0-5.0); NEUTROPHILS # 4.1 10^3/uL (1.5-8.5); NEUTROPHILS % 51.4 % (36.0-66.0); PLATELET COUNT, AUTOMATED 299 10^3/uL (150-450); RED BLOOD COUNT 4.42 10^6/uL (4.30-6.10)
[2019-12-26 09:20] LABS: ALBUMIN 4.1 GM/DL (3.2-5.2); ALT/SGPT 48 U/L (12-78); BILIRUBIN,TOTAL 0.3 MG/DL (0.2-1.0); BLOOD UREA NITROGEN 11 MG/DL (7-18); CARBON DIOXIDE LEVEL 27 MEQ/L (21-32); CHLORIDE LEVEL 108 MEQ/L (98-107); CHOLESTEROL LEVEL 137 MG/DL (<200); CHOLESTEROL RISK RATIO 4.892 (<5); CREATININE FOR GFR 1.03 MG/DL (0.70-1.30); GLOMERULAR FILTRATION RATE > 60.0 (>60); GLUCOSE, FASTING 134 MG/DL (70-100); HDL CHOLESTEROL 28 MG/DL (>40); LDL CHOLESTEROL 77 MG/DL (<100); NON-HDL-C 109 MG/DL; POTASSIUM SERUM 3.8 MEQ/L (3.5-5.1); SODIUM LEVEL 141 MEQ/L (136-145); TOTAL PROTEIN 7.8 GM/DL (6.4-8.2); TRIGLYCERIDES LEVEL 161 MG/DL (<150)
[2019-12-26 09:21] LABS: HEMOGLOBIN A1c 6.3 %
== END ==
LOC: M LAB REF 16:54
PROVIDERS: ATTEND Family Medicine
DX: E11.9 Type 2 diabetes mellitus without complications (principal); R14.0 Abdominal distension (gaseous); Z79.899 Other long term (current) drug therapy

== ENCOUNTER → 2020-01-13 | Outpatient (REF) | payer MEDICARE, MEDICAID | LOC: M LAB REF 12:15 | PROVIDERS: ATTEND Family Medicine Addiction Medicine | DX: E11.9 Type 2 diabetes mellitus without complications (principal) ==

== ENCOUNTER → 2020-02-09 | Outpatient (REF) | payer MEDICARE, MEDICAID ==
[2020-02-09 17:34] LABS: ALBUMIN 4.2 GM/DL (3.2-5.2); ALT/SGPT 44 U/L (12-78); BILIRUBIN,TOTAL 0.4 MG/DL (0.2-1.0); BLOOD UREA NITROGEN 11 MG/DL (7-18); CALCIUM LEVEL 9.7 MG/DL (8.5-10.1); CARBON DIOXIDE LEVEL 29 MEQ/L (21-32); CHLORIDE LEVEL 106 MEQ/L (98-107); CHOLESTEROL LEVEL 138 MG/DL (<200); CHOLESTEROL RISK RATIO 4.928 (<5); CREATININE FOR GFR 0.97 MG/DL (0.70-1.30); GLOMERULAR FILTRATION RATE > 60.0 (>60); GLUCOSE, FASTING 88 MG/DL (70-100); HDL CHOLESTEROL 28 MG/DL (>40); LDL CHOLESTEROL 72 MG/DL (<100); NON-HDL-C 110 MG/DL; POTASSIUM SERUM 4.3 MEQ/L (3.5-5.1); SODIUM LEVEL 139 MEQ/L (136-145); THYROID STIMULATING HORMONE 0.697 uIU/ML (0.358-3.740); TOTAL PROTEIN 8.2 GM/DL (6.4-8.2); TRIGLYCERIDES LEVEL 189 MG/DL (<150)
[2020-02-09 17:49] LABS: HEMOGLOBIN A1c 5.8 %
== END ==
LOC: M LAB REF 16:15
PROVIDERS: ATTEND Family Medicine Addiction Medicine
DX: E11.9 Type 2 diabetes mellitus without complications (principal)

== ENCOUNTER 2020-02-27 19:58 | Emergency (ER) | payer MEDICARE, MEDICAID ==
[~2020-02-27] VITALS: Ht 157.5 cm; Wt 104.6 kg
[2020-02-27] MEDS ORDERED: METOCLOPRAMIDE INJ 10MG/2ML VIAL (J2765 PER 1) IV ONE (20:30)
[2020-02-27] MEDS ORDERED: NS 1,000 ML IV ONE (20:30)
[2020-02-27 21:04] LABS: BASO # 0.1 10^3/uL (0.0-0.2); BASO % 0.3 % (0.0-1.0); EOS # 0.2 10^3/uL (0.0-0.5); HEMATOCRIT 44.9 % (42.0-52.0); HEMOGLOBIN 14.9 g/dl (13.5-17.5); LYMPH # 2.1 10^3/uL (1.5-5.0); LYMPH % 12.3 % (24.0-44.0); MEAN CORPUSCULAR HEMOGLOBIN 29.9 pg (27.0-33.0); MEAN CORPUSCULAR HGB CONC 33.2 g/dl (32.0-36.5); MONO # 1.1 10^3/uL (0.0-0.8); MONO % 6.8 % (0.0-5.0); NEUTROPHILS # 13.3 10^3/uL (1.5-8.5); PLATELET COUNT, AUTOMATED 357 10^3/uL (150-450); RED BLOOD COUNT 4.99 10^6/uL (4.30-6.10); WHITE BLOOD COUNT 16.9 10^3/uL (4.0-10.0)
[2020-02-27 21:34] LABS: ALBUMIN 4.2 GM/DL (3.2-5.2); ALT/SGPT 37 U/L (12-78); BILIRUBIN,DIRECT < 0.1 MG/DL (0.0-0.2); BILIRUBIN,TOTAL 0.4 MG/DL (0.2-1.0); BLOOD UREA NITROGEN 13 MG/DL (7-18); CALCIUM LEVEL 9.3 MG/DL (8.5-10.1); CARBON DIOXIDE LEVEL 28 MEQ/L (21-32); CHLORIDE LEVEL 104 MEQ/L (98-107); CK-MB VALUE MASS 2.1 NG/ML (<3.6); CPK CREATINE PHOSPHOKINASE 205 U/L (39-308); CREATININE FOR GFR 1.07 MG/DL (0.70-1.30); GLOMERULAR FILTRATION RATE > 60.0 (>60); GLUCOSE, FASTING 114 MG/DL (70-100); LIPASE 235 U/L (73-393); MB/CK RELATIVE INDEX 1.02 (< OR =4); POTASSIUM SERUM 4.2 MEQ/L (3.5-5.1); SODIUM LEVEL 139 MEQ/L (136-145); THYROID STIMULATING HORMONE 0.796 uIU/ML (0.358-3.740); TOTAL PROTEIN 8.5 GM/DL (6.4-8.2); TROPONIN I < 0.02 NG/ML (< 0.10)
--- NOTE | 2020-02-27 21:43 | REPVR ---
PROCEDURE INFORMATION: Exam: XR Abdomen, 1 View Exam date and time: 02/27/2020 8:49 PM Age: 39 years old Clinical indication: Bloating; Additional info: Abdominal distention TECHNIQUE: Imaging protocol: XR of the abdomen. Views: Frontal supine view of the abdomen. 1 View. COMPARISON: CT ABD PELVIS W/O CONTRAST 08/11/2015 3:56 PM FINDINGS: Tubes, catheters and devices: Isolated tube in the lateral right abdomen which is similar to the prior study. Gastrointestinal tract: Minimal gas in the GI tract without abnormal dilatation. Intraperitoneal space: There is a tube extending from the right aspect of the chest extending into the right abdomen forming loops about the right aspect of the abdomen and pelvis with the tip in the right upper quadrant. Bones/joints: Unremarkable. IMPRESSION: 1. Tube extending from the right aspect of the chest forming loops primarily in the right abdomen with the tip in the right upper quadrant suggesting a HEAD CLEANING PORTER shunt. 2. Isolated tube segment in the mid and lower right abdomen which is similar to 08/11/2015. 3. Otherwise negative abdomen with minimal gas which is within normal limits. Electronically signed by: Leon Guevara On 02/27/2020 21:43:42 PM
[2020-02-27] MEDS ORDERED: ISOVUE-370 76% 100ML VIAL As Ordered ONE (22:15)
--- NOTE | 2020-02-27 22:15 | ECGEPIP ---
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
--- NOTE | 2020-02-27 22:45 | REPVR ---
PROCEDURE INFORMATION: Exam: CT Abdomen And Pelvis With Contrast Exam date and time: 02/27/2020 10:29 PM Age: 39 years old Clinical indication: Abdominal pain; Generalized; Additional info: Severe abdominal pain; Diffuse; [id number] TECHNIQUE: Imaging protocol: Computed tomography of the abdomen and pelvis with intravenous contrast. Radiation optimization: All CT scans at this facility use at least one of these dose optimization techniques: automated exposure control; mA and/or kV adjustment per patient size (includes targeted exams where dose is matched to clinical indication); or iterative reconstruction. Contrast material: ISOVUE 370; Contrast volume: 100 ml; Contrast route: INTRAVENOUS (IV); COMPARISON: CT ABD PELVIS W/O CONTRAST 08/11/2015 3:56 PM FINDINGS: Diaphragm: Elevation of the right hemidiaphragm. Liver: The liver attenuation is 84 Hounsfield units and the spleen is 106 Hounsfield units. Gallbladder and bile ducts: Normal. No calcified stones. No ductal dilation. Pancreas: Normal. No ductal dilation. Spleen: Normal. No splenomegaly. Adrenal glands: Normal. No mass. Kidneys and ureters: Nonobstructing right renal calculi are noted. Stomach and bowel: Borderline distention of the stomach with fluid, food and gas. Appendix: The appendix measures 10 mm in diameter with enhancing mucosa and question of slight surrounding induration, however, the appearance is similar to the prior study. Intraperitoneal space: Tubular structure in the lateral right chest wall which is isolated with smaller 2nd tube traversing the anterolateral right chest wall with intraperitoneal extension and loop surround the lower abdomen, primarily midline into the right with the tip in the right upper quadrant just caudal to the liver. Vasculature: Incidental note of an accessory retroaortic left renal vein. Lymph nodes: Unremarkable. No enlarged lymph nodes. Urinary bladder: Question of slight perivesicular induration and slight wall thickening of the bladder dome but is similar to the prior study. Reproductive: Unremarkable as visualized. Bones/joints: Unremarkable. No acute fracture. Soft tissues: Unremarkable. IMPRESSION: 1. Intraperitoneal catheter extending from the anterolateral right chest suggesting a BULK TANK DRIVER shunt. 2. There is borderline gastric distention with fluid, food and gas which may reflect recent ingestion. Gastric atony or relative outlet obstruction are not excluded. 3. Nonobstructing right renal calculi. 4. Slightly enlarged appendix measuring 10 mm with enhancing mucosa and question of slight surrounding induration which may reflect borderline or early appendicitis, however, the appearance is unchanged from 08/11/2015. 5. Slight bladder wall thickening of the dome with slight surrounding induration. Cystitis is not excluded, however, the appearance is similar to the prior study. Electronically signed by: Leon Guevara On 02/27/2020 22:45:44 PM
[2020-02-27 22:47] VITALS: BP 109/60
[2020-02-27] MEDS ORDERED: AUGMENTIN 875 MG TAB PO ONE (23:00)
[2020-02-27] MEDS ORDERED: AUGM875T28 PO (23:06)
[2020-02-27] MEDS ORDERED: REGL10TA6 PO (23:06)
[2020-03-05 08:06] LABS: LAMOTRIGINE (LAMICTAL) 5.5 ug/mL (2.0-20.0); LEVETIRACETAM (KEPPRA) 14.7 ug/mL (10.0-40.0)
== END 2020-02-27 23:32 | disposition home or self-care (01) ==
LOC: M ED 19:58
DX: K31.84 Gastroparesis (principal); R00.0 Tachycardia, unspecified; N20.0 Calculus of kidney; Z79.899 Other long term (current) drug therapy
CPT/HCPCS: 74018; 74177; 80048; 80076; 80175; 80180; 82550; 82553; 83690; 84443; 84484; 85025; 93005; 96361; 96374; 96376; 99284; J2765; Q9967

== ENCOUNTER → 2023-10-14 | Outpatient (REF) | payer MEDICARE, MEDICAID ==
[~2023-10-14] MED LIST changes: +AUGM875T28 PO; -CYMB60CA3 PO; +CYMB60CA4 PO; +REGL10TA6 PO
[2023-10-15 13:41] LABS: BASO # 0.1 10^3/uL (0.0-0.2); BASO % 0.6 % (0.0-1.0); EOS # 0.3 10^3/uL (0.0-0.5); EOS % 3.3 % (0.0-3.0); HEMATOCRIT 39.8 % (42.0-52.0); HEMOGLOBIN 13.7 g/dl (13.5-17.5); LYMPH # 2.8 10^3/uL (1.5-5.0); LYMPH % 35.1 % (24.0-44.0); MEAN CORPUSCULAR HEMOGLOBIN 31.3 pg (27.0-33.0); MEAN CORPUSCULAR HGB CONC 34.4 g/dl (32.0-36.5); MEAN CORPUSCULAR VOLUME 90.9 fl (80.0-96.0); MONO # 0.7 10^3/uL (0.0-0.8); MONO % 8.9 % (2.0-8.0); NEUTROPHILS # 4.1 10^3/uL (1.5-8.5); NEUTROPHILS % 51.5 % (36.0-66.0); PLATELET COUNT, AUTOMATED 284 10^3/uL (150-450); RED BLOOD COUNT 4.38 10^6/uL (4.30-6.10)
[2023-10-15 13:47] LABS: ALKALINE PHOSPHATASE 77 U/L (46-116); ALT/SGPT 66 U/L (7.0-40); AST/SGOT 39 U/L (<34); BILIRUBIN,TOTAL 0.4 MG/DL (0.3-1.2); BLOOD UREA NITROGEN 8 MG/DL (9-23); CALCIUM LEVEL 9.4 MG/DL (8.5-10.1); CARBON DIOXIDE LEVEL 27 MMOL/L (20-31); CHLORIDE LEVEL 107 MMOL/L (98-107); GLOMERULAR FILTRATION RATE > 60.0 (>60); GLUCOSE, FASTING 150 MG/DL (60-100); POTASSIUM SERUM 3.7 MMOL/L (3.5-5.1); SODIUM LEVEL 142 MMOL/L (136-145); TOTAL PROTEIN 7.4 G/DL (5.7-8.2)
[2023-10-15 13:51] LABS: THYROID STIMULATING HORMONE 1.026 uIU/ML (0.55-4.78)
[2023-10-15 14:21] LABS: HEMOGLOBIN A1c 6.3 % (4.0-6.0)
== END ==
LOC: M LAB REF 12:49
PROVIDERS: ATTEND Family Medicine Addiction Medicine
DX: E11.9 Type 2 diabetes mellitus without complications (principal); R55 Syncope and collapse

== ENCOUNTER → 2023-11-04 | Outpatient (CLI) | payer MEDICARE, MEDICAID | LOC: M PLAIMG 09:55 | PROVIDERS: ATTEND Internal Medicine Cardiovascular Disease | DX: I51.7 Cardiomegaly (principal); I27.23 Pulmonary hypertension due to lung diseases and hypoxia ==

== ENCOUNTER → 2024-08-09 | Outpatient (REF) | payer MEDICARE, MEDICAID ==
[~2024-08-09] MED LIST changes: +GLIP-318 PO; -GLIP5TAB20 PO
[2024-08-09 18:39] LABS: ALKALINE PHOSPHATASE 95 U/L (40-129); ALT/SGPT 63 U/L (7.0-40); AST/SGOT 42 U/L (<34); BILIRUBIN,TOTAL 0.3 MG/DL (0.3-1.2); BLOOD UREA NITROGEN 10 MG/DL (9-23); CALCIUM LEVEL 8.6 MG/DL (8.5-10.1); CARBON DIOXIDE LEVEL 26 MMOL/L (20-31); CHLORIDE LEVEL 107 MMOL/L (98-107); CHOLESTEROL LEVEL 149 MG/DL (<200); CHOLESTEROL RISK RATIO 4.31 (<5); CREATININE FOR GFR 0.88 MG/DL (0.70-1.30); GLOMERULAR FILTRATION RATE > 90.0 (>60); GLUCOSE, FASTING 143 MG/DL (60-100); HDL CHOLESTEROL 34.5 MG/DL (>40); LDL CHOLESTEROL 94.9 MG/DL (<100); NON-HDL-C 114.5 MG/DL; POTASSIUM SERUM 4.1 MMOL/L (3.5-5.1); SODIUM LEVEL 142 MMOL/L (136-145); TOTAL PROTEIN 7.6 G/DL (5.7-8.2); TRIGLYCERIDES LEVEL 98 MG/DL (<150)
== END ==
LOC: M LAB REF 17:57
PROVIDERS: ATTEND Family Medicine Addiction Medicine
DX: E11.9 Type 2 diabetes mellitus without complications (principal)

== ENCOUNTER → 2025-01-24 | Outpatient (REF) | payer MEDICARE, MEDICAID ==
[~2025-01-24] MED LIST changes: +FLUV25TA11 PO; +GABA-1172 PO; +PROZ10CA11 PO; -PROZ10CA7 PO; -PROZ20CA11 PO; +PROZ20CA12 PO; +REXU1TAB2 PO; +RIZA10TA58 PO; +TRUL0.5I SC; +VITA100093 PO; -ZOLP5TAB PO; +ZOLP5TAB9 PO
== END ==
LOC: M LAB REF 12:53
PROVIDERS: ATTEND Nurse Practitioner Family
DX: R55 Syncope and collapse (principal)